=== PATIENT | female | born 1930 | race African-American/Black ===

== ENCOUNTER 2021-03-08 09:39 | Inpatient (IN) | payer MEDICARE, OTHER ==
[2021-03-08 10:24] LABS: #Eosinphils 0.1 10x3/uL (0.0-0.5); #Monocytes 0.5 10x3/uL (0.0-1.1); #Neutrophils 6.9 10x3/uL (1.5-8.4); %Basophils 0.5 % (0.0-2.0); %Eosinophils 1.4 % (0.0-6.0); %Lymphocytes 9.6 % (18.0-47.0); %Monocytes 5.9 % (0.0-10.0); %Neutrophils 82.4 % (40.0-75.0); Hemoglobin 11.4 g/dL (12.0-15.5); Mean Corpuscular HGB CONC 31.1 g/dL (32.0-36.0); Mean Corpuscular Hemoglobin 28.9 pg (27.0-33.0); Mean Corpuscular Volume 92.9 fl (81.6-98.3); Mean Platelet Volume 11.5 fl (7.4-10.4); Platelet Count 190 10x3/uL (150-450); RBC Distribution Width 15.3 % (11.5-14.5); Red Blood Cell (RBC) Count 3.95 10x6/uL (3.90-5.03); White Blood Cell (WBC) Count 8.4 10x3/uL (3.5-10.5)
[2021-03-08 10:33] LABS: ALT (SGPT) 11 U/L (8-55); AST (SGOT) 13 U/L (5-34); Albumin 3.5 g/dL (3.4-4.8); Alkaline Phosphatase 101 U/L (40-110); Anion Gap 13 mmol/L (10-20); BUN (Urea Nitrogen) 33 mg/dL (9.8-20.1); Calc. Creatinine Clearance 0 mL/min (70-130); Calcium 8.3 mg/dL (7.8-10.44); Carbon Dioxide 22 mmol/L (23-31); Chloride 108 mmol/L (98-107); Glucose 209 mg/dL (83-110); Potassium 4.6 mmol/L (3.5-5.1); Protein, Total 5.5 g/dL (5.8-8.1); Sodium 138 mmol/L (136-145)
[2021-03-08] MEDS ORDERED: Furosemide 40 MG/4 ML VIAL ONE (11:05)
[2021-03-08] MEDS ORDERED: Nitroglycerin 2% Ointment 1 INCH/1 GM Packet ONE (11:05)
[2021-03-08] MEDS ORDERED: Aspirin Chewable 81 MG TAB ONE ×2 (11:05→11:13)
[2021-03-08] MEDS ORDERED: Acetaminophen 650 MG Suppository PR PRN (11:42)
[2021-03-08] MEDS ORDERED: Ondansetron ODT 4 MG TAB PO PRN (11:42)
[2021-03-08] MEDS ORDERED: Ondansetron PF 4 MG/2 ML Vial IVP PRN (11:42)
[2021-03-08] MEDS ORDERED: Dextrose 5% in Water 1,000 ML IV PRN (11:48)
[2021-03-08] MEDS ORDERED: Insulin Regular 300 UNITS/3 ML VIAL SC PRN (11:48)
[2021-03-08] MEDS ORDERED: Dextrose 50% Abboject 50 ML SYRINGE SLOW IVP PRN (11:48)
[2021-03-08] MEDS ORDERED: Nitroglycerin 2% Ointment 1 INCH/1 GM Packet TOP PRN (11:49)
[2021-03-08 12:05] LABS: Magnesium 1.8 mg/dL (1.6-2.6)
[2021-03-08 14:46] LABS: Troponin I 0.028 ng/mL (< 0.028)
[2021-03-08] MEDS: Furosemide 40 MG/4 ML VIAL SLOW IVP SCH (17:00)
[2021-03-08] MEDS: Carvedilol 12.5 MG TAB PO SCH (18:00)
[2021-03-08] MEDS ORDERED: Magnesium 2 GM/50 ML 2 GM in Premix Bag 1 BAG IVPB SCH (19:00)
[2021-03-08] MEDS: Heparin 5,000 UNITS/ML VIAL SC SCH (20:40)
[2021-03-08] MEDS ORDERED: cloNIDine 0.1 MG TAB PO SCH (21:00)
[2021-03-08 22:16] LABS: Troponin I 0.029 ng/mL (< 0.028)
[2021-03-09] MEDS: hydrALAZINE 20 MG/ML VIAL SLOW IVP PRN ×2 (01:11→05:26)
[2021-03-09] MEDS: Acetaminophen 325 MG TAB PO PRN ×2 (04:16→08:01)
[2021-03-09 05:21] LABS: Anion Gap 17 mmol/L (10-20); BUN (Urea Nitrogen) 34 mg/dL (9.8-20.1); Calc. Creatinine Clearance 19 mL/min (70-130); Calcium 8.6 mg/dL (7.8-10.44); Carbon Dioxide 22 mmol/L (23-31); Chloride 106 mmol/L (98-107); Glucose 140 mg/dL (83-110); Potassium 3.7 mmol/L (3.5-5.1); Sodium 141 mmol/L (136-145)
[2021-03-09 05:28] LABS: #Basophils 0.1 10x3/uL (0.0-0.2); #Eosinphils 0.3 10x3/uL (0.0-0.5); #Monocytes 0.7 10x3/uL (0.0-1.1); #Neutrophils 5.3 10x3/uL (1.5-8.4); %Basophils 0.7 % (0.0-2.0); %Eosinophils 3.9 % (0.0-6.0); %Lymphocytes 15.9 % (18.0-47.0); %Monocytes 9.7 % (0.0-10.0); %Neutrophils 69.5 % (40.0-75.0); Hemoglobin 11.6 g/dL (12.0-15.5); Mean Corpuscular HGB CONC 31.2 g/dL (32.0-36.0); Mean Corpuscular Hemoglobin 28.7 pg (27.0-33.0); Mean Corpuscular Volume 92.1 fl (81.6-98.3); Mean Platelet Volume 11.6 fl (7.4-10.4); Platelet Count 207 10x3/uL (150-450); RBC Distribution Width 15.2 % (11.5-14.5); Red Blood Cell (RBC) Count 4.04 10x6/uL (3.90-5.03); White Blood Cell (WBC) Count 7.6 10x3/uL (3.5-10.5)
[2021-03-09] MEDS: Furosemide 40 MG/4 ML VIAL SLOW IVP SCH ×2 (05:34→15:03)
[2021-03-09 05:35] VITALS: BMI 25.0
[2021-03-09] MEDS: Amlodipine 10 MG TAB PO SCH (08:01)
[2021-03-09] MEDS: Carvedilol 12.5 MG TAB PO SCH ×2 (08:01→17:02)
[2021-03-09] MEDS ORDERED: cloNIDine 0.1 MG TAB PO SCH (08:15)
[2021-03-09] MEDS: Calcitriol 0.25 MCG CAP PO SCH (08:27)
[2021-03-09] MEDS: Clopidogrel Bisulfate 75 MG TAB PO SCH (08:27)
[2021-03-09] MEDS: Hydrochlorothiazide 25 MG TAB PO SCH (08:27)
[2021-03-09] MEDS: Losartan Potassium 50 MG TAB PO SCH (08:27)
[2021-03-09] MEDS: Ferrous Sulfate 325 MG TAB PO SCH ×2 (08:27→17:02)
[2021-03-09] MEDS: Rosuvastatin 10 MG TAB PO SCH (08:28)
[2021-03-09] MEDS: Isosorbide Dinitrate 10 MG TAB PO SCH ×2 (08:28→20:23)
[2021-03-09] MEDS: glipiZIDE 10 MG TAB PO SCH ×2 (08:28→17:02)
[2021-03-09] MEDS: Aspirin Chewable 81 MG TAB PO SCH (08:29)
[2021-03-09] MEDS ORDERED: cloNIDine 0.2 MG TAB PO SCH (09:00)
[2021-03-09] MEDS ORDERED: Levothyroxine Sodium 50 MCG TAB PO SCH (09:00)
[2021-03-09] MEDS ORDERED: Aspirin Chewable 81 MG TAB PO SCH (09:00)
[2021-03-09] MEDS: Heparin 5,000 UNITS/ML VIAL SC SCH ×2 (09:04→20:26)
[2021-03-09] MEDS: Insulin Regular 300 UNITS/3 ML VIAL SC PRN (12:53)
[2021-03-09] MEDS ORDERED: Potassium Chloride 20 MEQ TAB PO SCH (13:00)
[2021-03-09 15:16] LABS: SARS-CoV-2 PCR by NAA Not Detected (NotDetected)
[2021-03-09] MEDS: cloNIDine 0.1 MG TAB PO SCH (20:24)
[2021-03-10 05:07] LABS: #Eosinphils 0.2 10x3/uL (0.0-0.5); #Monocytes 0.7 10x3/uL (0.0-1.1); #Neutrophils 3.9 10x3/uL (1.5-8.4); %Basophils 0.5 % (0.0-2.0); %Lymphocytes 23.3 % (18.0-47.0); %Monocytes 11.3 % (0.0-10.0); %Neutrophils 61.6 % (40.0-75.0); Hemoglobin 11.8 g/dL (12.0-15.5); Mean Corpuscular HGB CONC 32.1 g/dL (32.0-36.0); Mean Corpuscular Hemoglobin 29.4 pg (27.0-33.0); Mean Corpuscular Volume 91.5 fl (81.6-98.3); Mean Platelet Volume 11.4 fl (7.4-10.4); Platelet Count 219 10x3/uL (150-450); RBC Distribution Width 15.1 % (11.5-14.5); Red Blood Cell (RBC) Count 4.02 10x6/uL (3.90-5.03); White Blood Cell (WBC) Count 6.4 10x3/uL (3.5-10.5)
[2021-03-10 05:16] LABS: Anion Gap 15 mmol/L (10-20); BUN (Urea Nitrogen) 39 mg/dL (9.8-20.1); Calc. Creatinine Clearance 16 mL/min (70-130); Calcium 8.4 mg/dL (7.8-10.44); Carbon Dioxide 24 mmol/L (23-31); Chloride 106 mmol/L (98-107); Glucose 106 mg/dL (83-110); Potassium 3.9 mmol/L (3.5-5.1); Sodium 141 mmol/L (136-145)
[2021-03-10] MEDS ORDERED: Levothyroxine Sodium 50 MCG TAB PO SCH (06:00)
[2021-03-10] MEDS: Furosemide 40 MG/4 ML VIAL SLOW IVP SCH ×2 (06:13→14:48)
[2021-03-10] MEDS: Hydrochlorothiazide 25 MG TAB PO SCH (08:28)
[2021-03-10] MEDS: Isosorbide Dinitrate 10 MG TAB PO SCH (08:28)
[2021-03-10] MEDS: Ferrous Sulfate 325 MG TAB PO SCH (08:28)
[2021-03-10] MEDS: Calcitriol 0.25 MCG CAP PO SCH (08:28)
[2021-03-10] MEDS: Carvedilol 12.5 MG TAB PO SCH (08:28)
[2021-03-10] MEDS: Losartan Potassium 50 MG TAB PO SCH (08:28)
[2021-03-10] MEDS: Rosuvastatin 10 MG TAB PO SCH (08:28)
[2021-03-10] MEDS: Amlodipine 10 MG TAB PO SCH (08:29)
[2021-03-10] MEDS: glipiZIDE 10 MG TAB PO SCH (08:29)
[2021-03-10] MEDS: Aspirin Chewable 81 MG TAB PO SCH (08:29)
[2021-03-10] MEDS: Clopidogrel Bisulfate 75 MG TAB PO SCH (08:29)
[2021-03-10] MEDS: Heparin 5,000 UNITS/ML VIAL SC SCH (08:29)
[2021-03-10] MEDS: cloNIDine 0.1 MG TAB PO SCH (08:29)
[2021-03-10] MEDS: Insulin Regular 300 UNITS/3 ML VIAL SC PRN (13:25)
[2021-03-10 16:06] VITALS: BP 91/50; TEMP 98.7
== END 2021-03-10 16:57 | disposition home or self-care (01) | DRG 291 ==
LOC: CSHERS 09:39 → CSHTELE 17:16
PROVIDERS: ADMIT Family Medicine; ATTEND Internal Medicine
DX: I13.0 Hypertensive heart and chronic kidney disease with heart failure and stage 1 through stage 4 chronic kidney disease, or unspecified chronic kidney disease (principal); I50.23 Acute on chronic systolic (congestive) heart failure; Z20.822 Contact with and (suspected) exposure to COVID-19; N18.30 Chronic kidney disease, stage 3 unspecified; I25.118 Atherosclerotic heart disease of native coronary artery with other forms of angina pectoris; E11.51 Type 2 diabetes mellitus with diabetic peripheral angiopathy without gangrene; I70.213 Atherosclerosis of native arteries of extremities with intermittent claudication, bilateral legs; I65.23 Occlusion and stenosis of bilateral carotid arteries; E11.22 Type 2 diabetes mellitus with diabetic chronic kidney disease; I25.5 Ischemic cardiomyopathy; E78.2 Mixed hyperlipidemia; I89.0 Lymphedema, not elsewhere classified; Z96.653 Presence of artificial knee joint, bilateral; I25.2 Old myocardial infarction; Z95.5 Presence of coronary angioplasty implant and graft; Z79.82 Long term (current) use of aspirin; Z79.02 Long term (current) use of antithrombotics/antiplatelets; Z79.899 Other long term (current) drug therapy; Z98.42 Cataract extraction status, left eye; Z98.41 Cataract extraction status, right eye; Z82.49 Family history of ischemic heart disease and other diseases of the circulatory system
CPT/HCPCS: 36415; 36416; 71045; 80048; 80053; 83735; 83880; 84443; 84484; 85025; 93005; 93010; 93306; 94760; 94762; 97139; J0360; J1644; J1815; J1940; J2405; J3475; U0003; U0005